=== PATIENT | male | born 1965 | race Caucasian/White ===

== ENCOUNTER → 2021-02-13 | Outpatient (CLI) | payer OTHER ==
[~2021-02-13] MED LIST: HYDROCHLOROTHIA25 MG PO; LISINOPRIL20 MG PO; LOPRESSOR100 MG PO; MEDROL DOSEPAK 24 MG PO; PROVENTIL HFA6.7 GM INH
== END ==
LOC: EXRD 09:08
DX: R06.02 Shortness of breath (principal)
CPT/HCPCS: 71046

== ENCOUNTER 2021-03-27 10:44 | Emergency (ER) | payer OTHER ==
[~2021-03-27 10:44] MED LIST changes: -MEDROL DOSEPAK 24 MG PO; -PROVENTIL HFA6.7 GM INH
[2021-03-27 11:56] LABS: HEMOGLOBIN 15.7 gm/dl (14.0-17.5); RED BLOOD COUNT 4.97 M/UL (4.20-5.50); WHITE BLOOD COUNT 10.6 K/UL (4.5-11.0)
[2021-03-27] MEDS ORDERED: PROVENTIL HFA6.7 GM INH (13:51)
[2021-03-27] MEDS ORDERED: MEDROL DOSEPAK 24 MG PO (13:51)
== END 2021-03-27 14:18 | disposition home or self-care (01) ==
LOC: ER1 10:44
PROVIDERS: Physician Assistant Medical
DX: J40 Bronchitis, not specified as acute or chronic (principal); J44.9 Chronic obstructive pulmonary disease, unspecified; I10 Essential (primary) hypertension; Z20.822 Contact with and (suspected) exposure to COVID-19; F17.210 Nicotine dependence, cigarettes, uncomplicated; Z90.49 Acquired absence of other specified parts of digestive tract
CPT/HCPCS: 0240U; 71046; 80053; 82550; 82553; 83874; 84484; 85025; 93005; 94664; 99285